=== PATIENT | female | born 1950 | race Caucasian/White ===

== ENCOUNTER 2020-07-11 09:10 | Day surgery (SDC) | payer MEDICARE ==
[2020-07-10 12:20] LABS: HEMATOCRIT 26.4 % (36.0-48.0); HEMOGLOBIN 8.6 g/dL (12-16); LYMPHOCYTES 32.8 % (15-50); MCH 31.5 pg (26.0-34.0); MCHC 32.6 g/dL (31.0-37.0); MCV 96.7 fL (80.0-100.0); MEAN PLATELET VOLUME 8.2 fL (7.4-10.4); NEUTROPHILS 57.8 % (40-80); PLATELET COUNT 306 10x3/uL (130-400); RBC 2.73 10x6/uL (4.00-5.40); RDW 13.4 % (11.5-14.5); WBC 6.6 10x3/uL (4.8-10.8)
[2020-07-10 12:34] LABS: ANION GAP 18.3 mmol/L (8-16); CALCIUM 10.4 mg/dL (8.5-10.1); CARBON DIOXIDE 22.8 mmol/L (21.0-32.0); CREATININE - SERUM 5.2 mg/dL (0.6-1.3); POTASSIUM - SERUM 4.1 mmol/L (3.5-5.1)
[2020-07-10 12:53] LABS: INR 1.04 (0.85-1.17); PROTIME 13.6 SECONDS (11.6-15.0)
[2020-07-10 12:54] LABS: APTT 28.2 SECONDS (22.8-39.4)
[~2020-07-11] VITALS: Ht 152.4 cm; Wt 81.6 kg
[~2020-07-11 09:10] MED LIST: BAYER CHEWABLE81 MG PO; CELEXA40 MG PO; CENTRUM SILVER1 EAC3 PO; FERROUS SULFAT325 MG PO; FUROSEMIDE20 MG PO; ISOSORBIDE MONO30 M1 PO; LIPITOR80 MG PO; LISINOPRIL5 MG PO; MERIBIN5 MG PO; NORVASC10 MG PO; PEPCID AC20 MG PO; VITAMIN D2000 UNI1 PO
[2020-07-11 11:14] VITALS: BP 110/53; Ht 152.4 cm; Wt 81.6 kg
--- NOTE | 2020-07-15 14:47 | OP ---
PATIENT NAME: CHARI CASTRO MEDICAL RECORD: [id number] :52 LOCATION: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 OPERATION PERFORMED: Open revision without thrombectomy of right forearm AV fistula. SURGEON: Natasha Leblanc MD ANESTHESIA: Local and MAC per MANAGER TALENT. PREOPERATIVE NOTE: Ms. Castro is a very nice 70-year-old white female patient from [place]. She is presently residing there. Her home is actually in [place], [place], but she and her have been on extended travels in their RV. She has chronic kidney disease and Dr. Dowell believes that she will require dialysis and a snuff box right radiocephalic AV fistula, which was created at [facility] about a year ago is not maturing due to excess diversion of flow via collaterals at the mid forearm level. I examined her in the office yesterday and saw at least 3 significant collaterals on ultrasound and she is brought to the operating room today with plans to revise her fistula basically by ligating multiple collateral veins. This will be done with intraoperative ultrasound and we will avoid any use of iodinated contrast. Under MAC per MANAGER TALENT, the patient was placed in supine position and her arm prepped and draped in sterile manner. I examined her with ultrasound and marked on the skin the course of the veins and the sites of origin or confluence with tributary collateral veins. An incision approximately 2 inches long was made on the mid forearm and 3 different collateral veins were ligated with Hemoclips. This diverted flow entirely from the median antebrachial vein all to the cephalic vein laterally. The veins were treated with topical papaverine. An additional incision was made under local anesthesia more distally and another single large collateral vein was identified and closed with a Hemoclip. The end result was increased pulsatility and continuous pulsatile flow Doppler signals over the course of the fistula and excellent pulsatile turbulent flow throughout the fistula up into the upper arm on color flow Duplex ultrasound. The patient's wounds were infiltrated with 0.25% Marcaine without epinephrine and closed with interrupted inverted 3-0 Vicryl and running intracuticular 4-0 Stratafix and Dermabond glue. They were dressed with Maxorb Ag, Tegaderm, and Cavilon skin prep. The patient was awakened and in stable condition taken to the recovery room. There was no blood loss during the procedure. No drain was used. No specimen was submitted for histopathology. Blood loss was insignificant and un-replaced. PLAN: She will return to see me in my office probably week after next. In the meantime, she can leave the original operative dressing intact and keep it dry and clean and resume activities as tolerated. She is to continue all of her same medications and diet as well. OPERATIVE REPORT [id number] CHARI CASTRO TRANSINT:[id number] Voice Confirmation ID: [id number] DOCUMENT ID: [id number] cc: [facility] NATASHA LEBLANC MD at [id number] CC: SAMMIE DOWELL [id number] DICTATION DATE: 07/11/20 1328 [place] [place] [facility]: 07/11/20 2220 [facility] 07/11/20 [id number] [place] [address]
== END 2020-07-11 15:05 | disposition home or self-care (01) ==
LOC: D.OPS 09:10
PROVIDERS: Surgery; ATTEND Internal Medicine Nephrology
DX: N18.5 Chronic kidney disease, stage 5 (principal); T82.598A Other mechanical complication of other cardiac and vascular devices and implants, initial encounter